=== PATIENT | male | born 1985 | race Caucasian/White ===

== ENCOUNTER 2019-09-15 12:43 | Emergency (ER) | payer SELFPAY ==
[~2019-09-15] VITALS: Ht 175.3 cm; Wt 89.2 kg
[2019-09-15] MEDS ORDERED: IV NORMAL SALINE 1,000ML 1,000 ML IV ONE (13:00)
--- NOTE | 2019-09-15 13:16 | PHYS DOC ---
Past History Past Medical History: No Pertinent History Past Surgical History: Other Additional Past Surgical Histo: Right hand foreign body removal Alcohol Use: Rarely Drug Use: None Adult General Chief Complaint Chief Complaint: FLU SYMPTOM HPI HPI 34-year-old male presents with 4-5 day history of body aches, chills, runny nose, vomiting, cough. He has not measured a fever. He has no known sick contacts. He has not taken any medications for her symptoms today. He decided to come in because he is not feeling better. He is also not been able to keep down any solid food. He is able to keep down some water and gerard leana. Review of Systems Review of Systems Constitutional: Chills, body aches.[] Eyes: Denies change in visual acuity, redness, or eye pain [] HENT: Runny nose[] Respiratory: Cough without shortness of breath [] Cardiovascular: No additional information not addressed in HPI [] GI: nausea, vomiting. Denies abdominal pain, bloody stools or diarrhea [] : Denies dysuria or hematuria [] Musculoskeletal: Denies back pain or joint pain [] Integument: Denies rash or skin lesions [] Neurologic: Denies headache, focal weakness or sensory changes [] Endocrine: Denies polyuria or polydipsia [] All other systems were reviewed and found to be within normal limits, except as documented in this note. Current Medications Current Medications Current Medications Medications (Trade) Dose Ordered Sig/Zenaida Start Time Stop Time Status Last Admin Dose Admin Ondansetron HCl (Zofran) 4 mg 1X ONCE 09/15/19 13:15 09/15/19 13:16 UNV Sodium Chloride 1,000 ml @ 1,000 mls/hr 1X ONCE 09/15/19 13:00 09/15/19 13:59 Allergies Allergies Allergies Coded Allergies Type Severity Reaction Last Updated Verified Penicillins Allergy Intermediate 02/24/15 Yes Physical Exam Physical Exam Constitutional: Well developed, well nourished, no acute distress, non-toxic appearance. [] HENT: Normocephalic, atraumatic, bilateral external ears normal, oropharynx moist, no oral exudates, nose with thin drainage. [] Eyes: PERRLA, EOMI, conjunctiva normal, no discharge. [] Neck: Normal range of motion, no tenderness, supple, no stridor. [] Cardiovascular: Heart rate regular rhythm, no murmur [] Lungs & Thorax: Bilateral breath sounds clear to auscultation [] Abdomen: Bowel sounds normal, soft, no tenderness, no masses, no pulsatile masses. [] Skin: Warm, dry, no erythema, no rash. [] Back: No tenderness, no CVA tenderness. [] Extremities: No tenderness, no cyanosis, no clubbing, ROM intact, no edema. [] Neurologic: Alert and oriented X 3, normal motor function, normal sensory function, no focal deficits noted. [] Psychologic: Affect normal, judgement normal, mood normal. [] Current Patient Data Vital Signs Vital Signs Date Time Temp Pulse Resp B/P (MAP) Pulse Ox O2 Delivery O2 Flow Rate FiO2 09/15/19 12:52 98.9 85 16 129/49 (75) 97 Room Air EKG EKG [] Radiology/Procedures Radiology/Procedures [] Course & Med Decision Making Course & Med Decision Making Pertinent Labs and Imaging studies reviewed. (See chart for details) The patient's labs are unremarkable. His influenza is negative. This is likely another viral gastroenteritis. We'll discharge the patient with a prescription for Zofran. He is stable for discharge at this time. [] Dragon Disclaimer Dragon Disclaimer This electronic medical record was generated, in whole or in part, using a voice recognition dictation system. Departure Departure: Impression: Primary Impression: Viral gastroenteritis Disposition: 01 HOME, SELF-CARE Condition: STABLE Referrals: PCP,NO (PCP) Patient Instructions: Viral Gastroenteritis, [id number] Scripts Ondansetron (ONDANSETRON ODT) 4 Mg Tab.rapdis 1 TAB PO PRN Q6-8HRS PRN for VOMITING, #16 TAB Prov: SUNDAY DOLAN DO 09/15/19 DOLAN DO Sep 15, 2019 13:16
[2019-09-15 13:27] LABS: BASO % 1 % (0-3); EOS % 0 % (0-3); HEMATOCRIT 45.1 % (39.0-53.0); HEMOGLOBIN 15.2 g/dL (13.0-17.5); LYMPH # 1.5 x10^3/uL (1.0-4.8); LYMPH % 36 % (24-48); MEAN CORPUSCULAR HEMOGLOBIN 28 pg (25-35); MEAN CORPUSCULAR HGB CONC 34 g/dL (31-37); MEAN CORPUSCULAR VOLUME 82 fL (79-100); MONO # 0.3 x10^3/uL (0.0-1.1); MONO % 8 % (0-9); NEUT # 2.4 x10^3uL (1.8-7.7); NEUT % 55 % (31-73); PLATELET COUNT 182 x10^3/uL (140-400); WHITE BLOOD COUNT 4.3 x10^3/uL (4.0-11.0)
[2019-09-15] MEDS ORDERED: ONDANSETRON PF 4 MG/2 ML VIAL. IVP ONE (13:30)
[2019-09-15 13:32] LABS: INFLUENZA A PATIENT NEGATIVE (NEGATIVE)
[2019-09-15 13:33] LABS: INFLUENZA B PATIENT NEGATIVE (NEGATIVE)
[2019-09-15 13:39] LABS: CALCIUM 8.4 mg/dL (8.5-10.1); CREATININE 1.1 mg/dL (0.7-1.3); GFR 76.2; POTASSIUM 3.9 mmol/L (3.5-5.1)
[2019-09-15 13:42] LABS: ALBUMIN 3.5 g/dL (3.4-5.0); ALBUMIN/GLOBULIN RATIO 0.9 (1.0-1.7); TOTAL BILIRUBIN 0.4 mg/dL (0.2-1.0); TOTAL PROTEIN 7.3 g/dL (6.4-8.2)
[2019-09-15] MEDS ORDERED: ONDA4TAB12 PO (14:04)
[2019-09-15 14:07] VITALS: BP 129/67
== END 2019-09-15 14:25 | disposition home or self-care (01) ==
LOC: ER 12:43
DX: A08.4 Viral intestinal infection, unspecified (principal); R11.2 Nausea with vomiting, unspecified; Z88.0 Allergy status to penicillin
CPT/HCPCS: 36415; 80053; 85025; 87804; 96361; 96374; 99284; J2405; J7030

== ENCOUNTER 2019-11-04 14:33 | Emergency (ER) | payer SELFPAY ==
[~2019-11-04] VITALS: Ht 175.3 cm; Wt 88.2 kg
[~2019-11-04 14:33] MED LIST: ONDA4TAB12 PO
--- NOTE | 2019-11-04 14:56 | PHYS DOC ---
Past History Past Medical History: No Pertinent History Past Surgical History: Other Additional Past Surgical Histo: Right hand foreign body removal Alcohol Use: Rarely Drug Use: None Adult General Chief Complaint Chief Complaint: FLU SYMPTOM HPI HPI Patient is a 34-year-old male who presents with complaint of fever and chills along with cough, body aches and shortness of breath for the last 5 days. Patient states symptoms are progressively getting worse and he is worried that he could have the coronavirus.[] Review of Systems Review of Systems Constitutional: Positive fever and chills [] HENT: Positive sore throat [] Respiratory: Denies cough or shortness of breath [] Cardiovascular: No additional information not addressed in HPI [] Integument: Denies rash or skin lesions [] Neurologic: Complains of headache without focal weakness or sensory changes [] All other systems were reviewed and found to be within normal limits, except as documented in this note. Allergies Allergies Allergies Coded Allergies Type Severity Reaction Last Updated Verified Penicillins Allergy Intermediate 02/24/15 Yes Physical Exam Physical Exam Constitutional: Well developed, well nourished, no acute distress, non-toxic appearance. [] HENT: Normocephalic, atraumatic, bilateral external ears normal, oropharynx moist, no oral exudates, nose normal. [] Neck: Normal range of motion, no tenderness, supple, no stridor. [] Cardiovascular: Regular rate and rhythm[] Lungs & Thorax: Fine rhonchi are noted bilaterally to auscultation [] Abdomen: Bowel sounds normal, soft, no tenderness. [] Skin: Warm, dry, no erythema, no rash. [] Extremities: No tenderness, no cyanosis, no clubbing, ROM intact, no edema. [] Neurologic: Alert and oriented X 3, no focal deficits noted. [] Current Patient Data Vital Signs Vital Signs Date Time Temp Pulse Resp B/P (MAP) Pulse Ox O2 Delivery O2 Flow Rate FiO2 11/04/19 14:43 98.1 71 18 131/70 (90) 98 Room Air EKG EKG [] Radiology/Procedures Radiology/Procedures [] Course & Med Decision Making Course & Med Decision Making Pertinent Labs and Imaging studies reviewed. (See chart for details) [] Dragon Disclaimer Dragon Disclaimer This electronic medical record was generated, in whole or in part, using a voice recognition dictation system. Departure Departure: Impression: Primary Impression: Viral syndrome Disposition: HOME, SELF-CARE Condition: STABLE Referrals: PCP,NO (PCP) Patient Instructions: Viral Syndrome Additional Instructions: Follow-up with primary care provider or return to emergency room if symptoms worsen to include fever greater than 101. DAISY ROBLES Jr. DO Nov 04, 2019 14:56
--- NOTE | 2019-11-04 15:16 | RAD ---
Single view of the chest. 11/04/2019 2:51 PM Indication: Cough Comparison: None Findings: There is no focal consolidation. There is no pleural effusion or pneumothorax. The cardiomediastinal silhouette and pulmonary vasculature are within normal limits. No acute osseous abnormalities are seen. Impression: No evidence of acute cardiopulmonary process. Electronically signed by: Shay Carcamo MD (11/04/2019 3:13 PM) [id number]
[2019-11-04 16:30] LABS: INFLUENZA A PATIENT NEGATIVE (NEGATIVE); INFLUENZA B PATIENT NEGATIVE (NEGATIVE)
--- NOTE | 2019-11-04 17:37 | RAD ---
CT chest without contrast dated 11/04/2019. No comparison available. CLINICAL INDICATION: Cough. TECHNIQUE: Contiguous axial imaging the chest performed without the administration of intravenous contrast. One or more of the following individualized dose reduction techniques were utilized for this examination: 1. Automated exposure control 2. Adjustment of the mA and/or kV according to patient size 3. Use of iterative reconstruction technique. FINDINGS: Heart size within normal limits. No pericardial effusion. No mediastinal, hilar or axillary lymphadenopathy. There is some increased density in the anterior superior mediastinum that is likely related to residual inflammatory tissue. Thyroid gland is unremarkable. Central airways are patent. Mild diffuse bronchial wall thickening. No consolidation or pleural effusion. No pneumothorax. No parenchymal nodule or mass. Limited images of upper abdomen unremarkable. No significant bony abnormality. IMPRESSION: 1. No evidence of focal pneumonia. 2. Mild diffuse bronchial wall thickening, nonspecific. Consider acute or chronic bronchial inflammatory process. Electronically signed by: Jonathan Montero MD (11/04/2019 5:35 PM) [id number]
[2019-11-04 17:53] VITALS: BP 127/70
== END 2019-11-04 17:52 | disposition home or self-care (01) ==
LOC: ER 14:33
DX: B34.9 Viral infection, unspecified (principal); Z88.0 Allergy status to penicillin
CPT/HCPCS: 71045; 71250; 87070; 87633; 87804; 87880; 99285

== ENCOUNTER 2020-02-06 23:41 | Emergency (ER) | payer SELFPAY ==
[~2020-02-06] VITALS: Ht 175.3 cm; Wt 88.2 kg
[2020-02-07 01:17] LABS: CALCIUM 9.4 mg/dL (8.5-10.1); CREATININE 1.5 mg/dL (0.7-1.3); GFR 53.3; POTASSIUM 3.1 mmol/L (3.5-5.1)
[2020-02-07 01:23] LABS: ALBUMIN 3.6 g/dL (3.4-5.0); DIRECT BILIRUBIN 0.1 mg/dL (0.0-0.2); TOTAL BILIRUBIN 0.4 mg/dL (0.2-1.0); TOTAL PROTEIN 7.4 g/dL (6.4-8.2)
--- NOTE | 2020-02-07 01:47 | PHYS DOC ---
Past History Past Medical History: No Pertinent History Past Surgical History: Other Additional Past Surgical Histo: Right hand foreign body removal Alcohol Use: Rarely Drug Use: None General Adult EDM: Chief Complaint: SUICIDAL IDEATION HPI: HPI: Patient is a 34-year-old male who presents with report of depression and having some thoughts of suicide but states that he does not think that he would actually ever go through with it because of fear of pain and not wanting to hurt his family. He states that he just does not want it to get to the point where he develops a plan. He indicates that he has a long history of bipolar disorder and thinks that he just needs to be on some medication to help him manage his feelings. He states that he has severe feelings of inadequacy and states that he just feels like he should be able to get over his problems but he just has not been able to. Patient states that he feels that he really needs help. [] Review of Systems: Review of Systems: Constitutional: Denies fever or chills Respiratory: Denies cough or shortness of breath Cardiovascular: Denies chest pain or edema GI: Denies abdominal pain, nausea, vomiting or diarrhea Integument: Denies rash Neurologic: Denies headache, focal weakness or sensory changes Psychiatric: Positive depression Heart Score: Risk Factors: Risk Factors: DM, Current or recent (<one month) smoker, HTN, HLP, family history of CAD, obesity. Risk Scores: Score 0 - 3: 2.5% MACE over next 6 weeks - Discharge Home Score 4 - 6: 20.3% MACE over next 6 weeks - Admit for Clinical Observation Score 7 - 10: 72.7% MACE over next 6 weeks - Early Invasive Strategies Allergies: Allergies: Allergies Coded Allergies Type Severity Reaction Last Updated Verified Penicillins Allergy Intermediate 02/07/20 Yes Physical Exam: PE: Constitutional: Well developed, well nourished, no acute distress, non-toxic appearance. [] HENT: Normocephalic, atraumatic, bilateral external ears normal, oropharynx moist, no oral exudates, nose normal. [] Eyes: PERRLA, EOMI, conjunctiva normal, no discharge. [] Neck: Normal range of motion, no tenderness, supple, no stridor. [] Cardiovascular: Regular rate and rhythm [] Lungs & Thorax: Bilateral breath sounds clear to auscultation [] Abdomen: Bowel sounds normal, soft, no tenderness, no masses, no pulsatile masses. [] Skin: Warm, dry, no erythema, no rash. [] Back: No tenderness, no CVA tenderness. [] Extremities: No tenderness, no cyanosis, no clubbing, ROM intact, no edema. [] Neurologic: Alert and oriented X 3, normal motor function, normal sensory function, no focal deficits noted. [] Psychologic: Flattened affect with depressed mood. [] Current Patient Data: Vital Signs: Vital Signs Date Time Temp Pulse Resp B/P (MAP) Pulse Ox O2 Delivery O2 Flow Rate FiO2 02/07/20 01:01 100 18 163/70 (101) 100 Room Air 02/07/20 00:05 98.1 EKG: EKG: [] Radiology/Procedures: Radiology/Procedures: [] Course & Med Decision Making: Course & Med Decision Making Pertinent Labs and Imaging studies reviewed. (See chart for details) [] Dragon Disclaimer: Dragon Disclaimer: This electronic medical record was generated, in whole or in part, using a voice recognition dictation system. Departure Departure: Impression: Primary Impression: Acute depression Disposition: AGAINST MEDICAL ADVICE Condition: STABLE Referrals: PCP,NO (PCP) Justification of Admission: Justification of Admission: Justification of Admission Dx: Comment: (Not applicable) DAISY ROBLES Jr. DO Feb 07, 2020 01:46
[2020-02-07 01:48] LABS: BASO # 0.1 x10^3/uL (0.0-0.2); BASO % 1 % (0-3); EOS # 0.5 x10^3/uL (0.0-0.7); EOS % 8 % (0-3); HEMATOCRIT 43.1 % (39.0-53.0); HEMOGLOBIN 14.6 g/dL (13.0-17.5); LYMPH # 1.8 x10^3/uL (1.0-4.8); LYMPH % 27 % (24-48); MEAN CORPUSCULAR HEMOGLOBIN 28 pg (25-35); MEAN CORPUSCULAR HGB CONC 34 g/dL (31-37); MEAN CORPUSCULAR VOLUME 83 fL (79-100); MONO # 0.6 x10^3/uL (0.0-1.1); MONO % 8 % (0-9); NEUT # 3.6 x10^3uL (1.8-7.7); NEUT % 55 % (31-73); PLATELET COUNT 395 x10^3/uL (140-400); RED BLOOD COUNT 5.18 x10^6/uL (4.30-5.70); RED CELL DISTRIBUTION WIDTH 13.7 % (11.5-14.5); WHITE BLOOD COUNT 6.6 x10^3/uL (4.0-11.0)
[2020-02-07 02:26] LABS: BACTERIA,URINE FEW /HPF (0-FEW); BILIRUBIN,URINE NEG (NEG); CLARITY,URINE HAZY; COLOR,URINE AMBER; GLUCOSE,URINE NEG (NEG); NITRITE,URINE NEG (NEG); RBC,URINE 0 /HPF (0-2)
[2020-02-07] MEDS ORDERED: POTASSIUM CITRATE 10 MEQ TABLET.ER PO STA (03:02)
[2020-02-07] MEDS ORDERED: POTASSIUM CHLORIDE 20 MEQ TABLET.ER. PO ONE (03:30)
[2020-02-07 04:04] VITALS: BP 144/90
== END 2020-02-07 04:16 | disposition home or self-care (01) ==
LOC: ER 23:41
DX: F32.9 Major depressive disorder, single episode, unspecified (principal); R45.851 Suicidal ideations; Z88.0 Allergy status to penicillin
CPT/HCPCS: 36415; 80048; 80076; 81001; 85025; 99283; G0480